=== PATIENT | female | born 1980 | race Caucasian/White ===

== ENCOUNTER 2019-06-01 08:37 | Day surgery (SDC) | payer BC, MEDICAID ==
[2019-06-01] MEDS ORDERED: fentaNYL 100 MCG/2 ML SDV IV ONE (08:38)
[2019-06-01] MEDS ORDERED: Dexamethasone 4 MG/ML 5 ML MDV IVPUSH ONE (08:38)
[2019-06-01] MEDS ORDERED: Lactated Ringers 1,000 ML IV ONE (08:38)
[2019-06-01] MEDS ORDERED: Midazolam 1 MG/ML 2 ML SDV IV ONE (08:38)
[2019-06-01] MEDS ORDERED: Propofol 200 MG/20 ML SDV IV ONE (08:38)
[2019-06-01] MEDS ORDERED: Ondansetron 4 MG/2 ML SDV IVPUSH ONE (08:38)
[2019-06-01] MEDS ORDERED: Ketorolac 30 MG/ML SDV IVPUSH ONE (08:38)
[2019-06-01] MEDS ORDERED: Lactated Ringers 1,000 ML IV SCH (08:45)
[2019-06-01] MEDS ORDERED: Sodium Chloride 0.9% 10 ML Syringe FLUSH PRN (08:45)
[2019-06-01] MEDS ORDERED: ceFAZolin 2 GM in Premix Bag 1 BAG IV ONE (10:00)
--- NOTE | 2019-06-01 10:11 | PCM.PN ---
- General Info Date of Service: 06/01/19 - Review of Systems Systems Review Comment:: 39 y/o female here for repair of umbilical hernia. Patient has history of multiple surgeries affecting this area so possible need to use mesh is discussed with patient and she agrees if necessary. The site is confirmed with the patient and marked. Proposed procedure again discussed with her as well as expectations and post op instructions. She agrees to proceed. - Patient Data Vitals - Most Recent: Last Vital Signs Temp 97.8 F 06/01/19 09:25 Pulse 59 L 06/01/19 09:25 Resp 16 06/01/19 09:25 BP 100/52 L 06/01/19 09:25 Pulse Ox 96 06/01/19 09:25 Weight - Most Recent: 231 lb Lab Results Last 24 Hours: Laboratory Results - last 24 hr 06/01/19 Range/Units 09:40 Urine HCG, Qual Negative (NEGATIVE) Med Orders - Current: Current Medications Cefazolin Sodium/Dextrose 2 gm (/ Premix) 50 mls @ 100 mls/hr IV ONETIME ONE Stop: 06/01/19 10:29 Last Admin: 06/01/19 10:02 Dose: 100 mls/hr Lactated Ringer's (Ringers, Lactated) 1,000 mls @ 125 mls/hr IV ASDIRECTED [facility] Last Admin: 06/01/19 09:17 Dose: 125 mls/hr Sodium Chloride (Saline Flush) 10 ml FLUSH ASDIRECTED PRN PRN Reason: Keep Vein Open - Problem List Review Problem List Initiated/Reviewed/Updated: Yes - My Orders Last 24 Hours: My Active Orders 06/01/19 08:45 Patient Status [ADT] Routine Patient to Empty Bladder [RC] ASDIRECTED RT Incentive Spirometry [RC] ASDIRECTED Verify Patient Consent Obtain [RC] ASDIRECTED Lactated Ringers [Ringers, Lactated] 1,000 ml IV ASDIRECTED Sodium Chloride 0.9% [Saline Flush] 10 ml FLUSH ASDIRECTED PRN Peripheral IV Insertion Adult [OM.PC] Routine Sequential Compression Device [OM.PC] Routine 06/01/19 10:00 ceFAZolin [Ancef] 2 gm Premix Bag 1 bag IV ONETIME 06/01/19 Breakfast Nothing Per Oral Diet [DIET] - Assessment Assessment:: Umbilical Hernia - Plan Plan:: Repair Umbilical Hernia with possible use of mesh
[2019-06-01] MEDS ORDERED: Bupivacaine 0.5% 30 ML SDV INJECT ONE (10:28)
[2019-06-01] MEDS ORDERED: ceFAZolin 1 GM Vial ONE (10:46)
--- NOTE | 2019-06-01 11:44 | PCM.OPNOTE ---
- General Post-Op/Procedure Note Date of Surgery/Procedure: 06/01/19 Operative Procedure(s): Repair umbilical hernia with mesh Findings: Moderate sized umbilical hernia with empty hernia sac Pre Op Diagnosis: Umbilical Hernia Post-Op Diagnosis: Same Anesthesia Technique: Local, MAC Primary Surgeon: Joseph Hughes Pathology: Hernia Sac Output, Urine Amount: 0 EBL in mLs: 20 Complications: None Condition: Good
--- NOTE | 2019-06-01 16:20 | OR ---
DATE OF OPERATION: 06/01/2019 SURGEON: Joseph Hughes MD PREOPERATIVE DIAGNOSIS: Umbilical hernia. POSTOPERATIVE DIAGNOSIS: Umbilical hernia. OPERATION PERFORMED: Umbilical hernia repair with mesh. INDICATIONS FOR SURGERY: This is a 39-year-old female who has developed a hernia at the level of the umbilicus. She has had multiple previous abdominal surgeries affecting this area. The hernia is becoming increasingly symptomatic for her and she comes for elective repair. FINDINGS: At the level of the umbilicus, there is a 4 cm hernia defect. The hernia sac is empty at this time. The adjacent fascia is intact, but did appear somewhat attenuated, consistent with her multiple previous surgeries in this area. No other defects in this region were identified. PROCEDURE IN DETAIL: The patient was taken to the operating room. She was given intravenous sedation and her abdomen was sterilely prepped and draped. The periumbilical area was infiltrated with Marcaine and a transverse incision was made just below the umbilicus. Dissection proceeded down onto the hernia sac which was carefully from the subcutaneous tissue and also dissected off the skin of the umbilicus. The sac was exposed down to the level of the fascia. The sac was opened and found to be empty and the sac was then excised at the fascia level with cautery. The fascial edges are trimmed to provide a clean repair surface and examination showed no other defects in the area. With the patient's history and somewhat attenuated fascia, it was felt that mesh reinforcement was appropriate for this repair. A flat piece of polypropylene mesh was selected and the hernia defect was then closed in a transverse orientation with interrupted #1 Prolene suture using a Smead-Andujar suturing technique. Incorporated on the anterior surface of the fascia in these repair sutures was a flat piece of polypropylene mesh. This created good closure of the hernia with secure reinforcement on the anterior surface of the fascia. After the hernia defect was closed and the mesh was secured, the mesh was trimmed and then the peripheral edge of the mesh was secured down to the underlying fascia with running 2-0 Vicryl. The wound was then irrigated with Ancef and saline solution, which was also been used to soak the mesh prior to its placement. Subcutaneous tissue was approximated and the skin of the umbilicus was tacked down to the underlying fascia with interrupted 3-0 Vicryl. The skin was closed with a running 4-0 Vicryl subcuticular stitch. Steri-Strips and benzoin were applied. Antibiotic ointment and sterile dressing were placed. The patient was then taken from the operating room in satisfactory condition. ESTIMATED BLOOD LOSS: 20 mL. COMPLICATIONS: None. PROGNOSIS: Good. /[id number] DONOVAN/SRINIVAS
== END 2019-06-01 13:08 | disposition home or self-care (01) ==
LOC: FB.SDS 08:37
PROVIDERS: ATTEND Surgery
DX: K42.9 Umbilical hernia without obstruction or gangrene (principal); E66.9 Obesity, unspecified; Z68.41 Body mass index [BMI] 40.0-44.9, adult
CPT/HCPCS: 49585; 81025; 94150; C1781; J0690; J1100; J1885; J2250; J2405; J2704; J3010; J3490; J7120